=== PATIENT | female | born 1955 | race Caucasian/White ===

== ENCOUNTER 2023-11-20 16:00 | Outpatient (CLI) | payer MEDICARE | END 2023-11-20 16:01 | disposition home or self-care (01) | LOC: SLEEPLAB 16:00 | PROVIDERS: ATTEND Otolaryngology Otolaryngic Allergy | DX: G47.33 Obstructive sleep apnea (adult) (pediatric) (principal); R53.83 Other fatigue; E11.9 Type 2 diabetes mellitus without complications; R06.83 Snoring; I25.10 Atherosclerotic heart disease of native coronary artery without angina pectoris; I10 Essential (primary) hypertension; G47.10 Hypersomnia, unspecified; G47.00 Insomnia, unspecified; I49.3 Ventricular premature depolarization | CPT/HCPCS: 95810 ==